=== PATIENT | male | born 1945 | race Caucasian/White ===

== ENCOUNTER → 2016-11-21 10:34 | Outpatient (CLI) | payer MEDICARE | END | disposition home or self-care (01) | LOC: D.MRI 11-20 10:30 | DX: M54.16 Radiculopathy, lumbar region (principal) ==

== ENCOUNTER → 2016-11-27 11:56 | Outpatient (CLI) | payer MEDICARE | END | disposition home or self-care (01) | LOC: D.CT 11:56 | DX: M54.16 Radiculopathy, lumbar region (principal) ==

== ENCOUNTER 2019-06-06 07:35 | Outpatient (CLI) | payer MEDICARE ==
[~2019-06-06] VITALS: Ht 180.3 cm; Wt 91.8 kg
[2019-06-06 08:01] LABS: ANION GAP 15.7 mmol/L (8-16); CALCIUM 9.5 mg/dL (8.5-10.1); CARBON DIOXIDE 26.9 mmol/L (21.0-32.0); CREATININE - SERUM 3.5 mg/dL (0.6-1.3); POTASSIUM - SERUM 4.6 mmol/L (3.5-5.1)
[2019-06-06 08:02] LABS: APTT 31.9 SECONDS (22.8-39.4); INR 1.04 (0.85-1.17); PROTIME 13.6 SECONDS (11.6-15.0)
[2019-06-06 08:22] LABS: BASOPHILS 0.6 % (0-2); EOSINOPHILS 2.6 % (0-7); HEMATOCRIT 44.1 % (42.0-54.0); HEMOGLOBIN 13.7 g/dL (13.5-17.5); IMMATURE GRANULOCYTES 0.6 % (0-5); LYMPHOCYTES 12.4 % (15-50); MCH 28.7 pg (26.0-34.0); MCHC 31.1 g/dL (31.0-37.0); MCV 92.3 fL (80.0-100.0); MEAN PLATELET VOLUME 8.9 fL (7.4-10.4); MONOCYTES 11.5 % (2-11); NEUTROPHILS 72.3 % (40-80); PLATELET COUNT 154 10x3/uL (130-400); RBC 4.78 10x6/uL (4.20-6.10); RDW 16.6 % (11.5-14.5); WBC 8.1 10x3/uL (4.8-10.8)
[2019-06-06] MEDS ORDERED: LISINOPRIL5 MG PO (08:59)
[2019-06-06] MEDS ORDERED: ZYLOPRIM300 MG PO (08:59)
[2019-06-06] MEDS ORDERED: BAYER CHEWABLE81 MG PO (08:59)
[2019-06-06] MEDS ORDERED: LASIX80 MG PO (08:59)
[2019-06-06] MEDS ORDERED: ZOCOR10 MG PO (09:00)
[2019-06-06] MEDS ORDERED: METOPROLOL TART50 MG PO (09:00)
[2019-06-06] MEDS ORDERED: TOPROL XL100 MG PO (09:00)
[2019-06-06] MEDS ORDERED: PEPCID AC20 MG PO (09:01)
[2019-06-06] MEDS ORDERED: AMBIEN10 MG PO (09:01)
[2019-06-06 09:11] VITALS: BP 118/51; Ht 180.3 cm; Wt 91.8 kg
== END 2019-06-06 13:00 | disposition home or self-care (01) ==
LOC: D.SP 07:35 → D.CT 10:00 → D.SP 13:00
PROVIDERS: General Practice; ATTEND Internal Medicine Hematology & Oncology
DX: D47.2 Monoclonal gammopathy (principal); I12.9 Hypertensive chronic kidney disease with stage 1 through stage 4 chronic kidney disease, or unspecified chronic kidney disease; E11.22 Type 2 diabetes mellitus with diabetic chronic kidney disease; N18.4 Chronic kidney disease, stage 4 (severe); E78.5 Hyperlipidemia, unspecified

== ENCOUNTER → 2019-06-28 14:50 | Outpatient (CLI) | payer MEDICARE ==
[2019-06-06 09:11] VITALS: BMI 28.2
[~2019-06-28 14:50] MED LIST: AMBIEN10 MG PO; BAYER CHEWABLE81 MG PO; LASIX80 MG PO; LISINOPRIL5 MG PO; METOPROLOL TART50 MG PO; PEPCID AC20 MG PO; TOPROL XL100 MG PO; ZOCOR10 MG PO; ZYLOPRIM300 MG PO
== END | disposition home or self-care (01) ==
LOC: D.RAD 14:50
PROVIDERS: ATTEND Internal Medicine Hematology & Oncology
DX: D47.2 Monoclonal gammopathy (principal); N18.4 Chronic kidney disease, stage 4 (severe)

== ENCOUNTER 2019-07-13 06:28 | Outpatient (CLI) | payer MEDICARE ==
[~2019-07-13] VITALS: Ht 180.3 cm; Wt 84.1 kg
[2019-07-13 07:02] LABS: ANION GAP 10.8 mmol/L (8-16); CALCIUM 9.5 mg/dL (8.5-10.1); CARBON DIOXIDE 29.6 mmol/L (21.0-32.0); POTASSIUM - SERUM 4.4 mmol/L (3.5-5.1)
[2019-07-13 07:04] LABS: BASOPHILS 0.5 % (0-2); EOSINOPHILS 2.3 % (0-7); HEMATOCRIT 44.5 % (42.0-54.0); HEMOGLOBIN 14.1 g/dL (13.5-17.5); IMMATURE GRANULOCYTES 0.7 % (0-5); LYMPHOCYTES 10.6 % (15-50); MCH 29.6 pg (26.0-34.0); MCHC 31.7 g/dL (31.0-37.0); MCV 93.3 fL (80.0-100.0); MEAN PLATELET VOLUME 8.7 fL (7.4-10.4); MONOCYTES 11.6 % (2-11); NEUTROPHILS 74.3 % (40-80); PLATELET COUNT 141 10x3/uL (130-400); RBC 4.77 10x6/uL (4.20-6.10); RDW 16.1 % (11.5-14.5); WBC 8.6 10x3/uL (4.8-10.8)
[2019-07-13 07:19] LABS: APTT 32.4 SECONDS (22.8-39.4); INR 1.01 (0.85-1.17); PROTIME 13.3 SECONDS (11.6-15.0)
[2019-07-13] MEDS ORDERED: PLAVIX75 MG PO (07:32)
[2019-07-13] MEDS ORDERED: ASPIRIN81 MG PO (07:33)
[2019-07-13] MEDS ORDERED: ZOCOR10 MG PO (07:34)
[2019-07-13] MEDS ORDERED: LISINOPRIL5 MG PO (07:34)
[2019-07-13] MEDS ORDERED: ZYLOPRIM300 MG PO (07:35)
[2019-07-13] MEDS ORDERED: LASIX40 MG PO (07:35)
[2019-07-13] MEDS ORDERED: TOPROL XL50 MG PO (07:36)
[2019-07-13] MEDS ORDERED: PEPCID AC20 MG PO (07:37)
[2019-07-13] MEDS ORDERED: AMBIEN10 MG PO (07:38)
[2019-07-13 07:51] VITALS: BP 121/67; BMI 28.2
[2019-07-13 10:45] LABS: BASOPHILS 0.4 % (0-2); EOSINOPHILS 2.6 % (0-7); HEMATOCRIT 40.3 % (42.0-54.0); HEMOGLOBIN 12.8 g/dL (13.5-17.5); IMMATURE GRANULOCYTES 0.6 % (0-5); LYMPHOCYTES 11.9 % (15-50); MCH 29.4 pg (26.0-34.0); MCHC 31.8 g/dL (31.0-37.0); MCV 92.4 fL (80.0-100.0); MEAN PLATELET VOLUME 8.6 fL (7.4-10.4); MONOCYTES 8.1 % (2-11); NEUTROPHILS 76.4 % (40-80); PLATELET COUNT 134 10x3/uL (130-400); RBC 4.36 10x6/uL (4.20-6.10); RDW 16.2 % (11.5-14.5); WBC 7.1 10x3/uL (4.8-10.8)
[2019-07-13 11:18] VITALS: BP 104/45
[2019-07-13 11:41] VITALS: BP 100/58
[2019-07-13 14:18] VITALS: Ht 180.3 cm; Wt 84.1 kg
[2019-07-13 16:14] LABS: BASOPHILS 0.5 % (0-2); HEMATOCRIT 39.5 % (42.0-54.0); HEMOGLOBIN 12.5 g/dL (13.5-17.5); IMMATURE GRANULOCYTES 0.8 % (0-5); MCH 29.6 pg (26.0-34.0); MCHC 31.6 g/dL (31.0-37.0); MCV 93.4 fL (80.0-100.0); MEAN PLATELET VOLUME 8.4 fL (7.4-10.4); MONOCYTES 7.8 % (2-11); NEUTROPHILS 74.9 % (40-80); PLATELET COUNT 119 10x3/uL (130-400); RBC 4.23 10x6/uL (4.20-6.10); RDW 16.2 % (11.5-14.5); WBC 6.4 10x3/uL (4.8-10.8)
[2019-07-13 16:33] VITALS: BP 83/49
--- NOTE | 2019-07-13 19:00 | NUR ---
EVENING ROUNDS COMPLETE. PT SITTING UP IN BED, NO SIGNS OF DISTRESS. PT DENIES ANY PAIN OR NEEDS AT THIS TIME. CL IN REACH, BED IN LOWEST POSITION.
[2019-07-13 20:00] VITALS: BP 96/56
[2019-07-14] VITALS: BP 89/46
[2019-07-14 03:11] LABS: BASOPHILS 0.5 % (0-2); EOSINOPHILS 1.5 % (0-7); HEMATOCRIT 39.2 % (42.0-54.0); HEMOGLOBIN 12.3 g/dL (13.5-17.5); IMMATURE GRANULOCYTES 0.5 % (0-5); LYMPHOCYTES 12.1 % (15-50); MCH 29.1 pg (26.0-34.0); MCHC 31.4 g/dL (31.0-37.0); MCV 92.9 fL (80.0-100.0); MONOCYTES 9.3 % (2-11); NEUTROPHILS 76.1 % (40-80); PLATELET COUNT 130 10x3/uL (130-400); RBC 4.22 10x6/uL (4.20-6.10); RDW 16.2 % (11.5-14.5); WBC 7.5 10x3/uL (4.8-10.8)
--- NOTE | 2019-07-14 03:26 | NUR ---
NO VISIBLE BLEEDING AT INCERTION SITE TO RIGHT FLANK. PT DENIES ANY PAIN OR NEEDS AT THIS TIME. CL IN REACH, BED IN LOWEST POSITION.
[2019-07-14 04:00] VITALS: BP 99/61
--- NOTE | 2019-07-14 07:40 | NUR ---
PT RECEIVED AWAKE AND ALERT. SITE TO LEFT BACK IS CLEAN AND DRY. COFFEE GIVEN, PT ANTICIPATES GOING HOME TODAY.
[2019-07-14 08:50] LABS: ANION GAP 10.4 mmol/L (8-16); CALCIUM 8.7 mg/dL (8.5-10.1); CARBON DIOXIDE 28.2 mmol/L (21.0-32.0); CREATININE - SERUM 2.9 mg/dL (0.6-1.3); POTASSIUM - SERUM 4.6 mmol/L (3.5-5.1)
[2019-07-14 09:25] VITALS: BP 105/58
[2019-07-14 10:25] LABS: BASOPHILS 0.5 % (0-2); EOSINOPHILS 2.2 % (0-7); HEMATOCRIT 38.7 % (42.0-54.0); HEMOGLOBIN 12.2 g/dL (13.5-17.5); IMMATURE GRANULOCYTES 0.5 % (0-5); LYMPHOCYTES 10.1 % (15-50); MCH 29.3 pg (26.0-34.0); MCHC 31.5 g/dL (31.0-37.0); MEAN PLATELET VOLUME 9.1 fL (7.4-10.4); MONOCYTES 10.7 % (2-11); PLATELET COUNT 128 10x3/uL (130-400); RBC 4.16 10x6/uL (4.20-6.10); RDW 16.1 % (11.5-14.5); WBC 6.3 10x3/uL (4.8-10.8)
== END 2019-07-14 12:44 | disposition home or self-care (01) ==
LOC: D.SP 06:28 → D.RAD 09:00 → D.M2 10:00 → D.SP 07-14 12:44
PROVIDERS: Internal Medicine; Radiology Vascular & Interventional Radiology; ATTEND Internal Medicine Nephrology
DX: C90.00 Multiple myeloma not having achieved remission (principal); E11.22 Type 2 diabetes mellitus with diabetic chronic kidney disease; I12.9 Hypertensive chronic kidney disease with stage 1 through stage 4 chronic kidney disease, or unspecified chronic kidney disease; N18.4 Chronic kidney disease, stage 4 (severe); E78.5 Hyperlipidemia, unspecified; I50.9 Heart failure, unspecified; M10.39 Gout due to renal impairment, multiple sites